=== PATIENT | female | born 1935 | race Two or more races ===

== ENCOUNTER 2023-08-20 13:29 | Emergency (ER) | payer OTHER ==
[~2023-08-20] VITALS: Ht 162.6 cm; Wt 98.9 kg
[~2023-08-20 13:29] MED LIST: ASA81 MG; COREG CR20 MG; COZAAR50 MG; GABAPENTIN100 MG; NORFLEX100 MG; TRAMADOL HCL-AP1 TAB; VASOTEC5 MG
[2023-08-20] MEDS ORDERED: ATORVASTATIN CA10 MG PO (13:50)
[2023-08-20] MEDS ORDERED: VITAMIN D3250 MCG PO (13:50)
[2023-08-20] MEDS ORDERED: LEVOTHYROXINE25 MC1 PO (13:50)
[2023-08-20] MEDS ORDERED: LOSARTAN-HCTZ1 EAC1 PO (13:50)
[2023-08-20 14:34] LABS: HEMATOCRIT 33.4 % (36.0-45.00); HEMOGLOBIN 11.2 g/dL (12.0-15.00); MEAN CELL VOLUME 83.7 fL (80.00-100.00); MEAN CORPUSCULAR HEMOGLOBIN 28.1 pg (27.00-32.0); MEAN CORPUSCULAR HGB CONC 33.6 g/dl (32.0-36.0); PLATELET COUNT 251 K/uL (150-450); RED BLOOD COUNT 3.99 M/uL (4.00-6.00); RED CELL DISTRIBUTION WIDTH 15.5 % (11.5-14.5)
[2023-08-20 15:04] LABS: CREATININE SERUM 0.97 mg/dL (0.55-1.02); GFR 54.2; POTASSIUM 3.43 mEq/L (3.5-5.1)
[2023-08-20 15:07] LABS: INR 1.01; PROTHROMBIN TIME 10.6 SECONDS (9.0-11.5)
[2023-08-20 15:20] LABS: URINE APPEARANCE Clear; URINE BILIRRUBIN Negative (NEGATIVE); URINE BLOOD Large; URINE COLOR Yellow; URINE GLUCOSE Negative (NEGATIVE); URINE LEUKOCYTE Large; URINE NITRATE Negative; URINE PROTEIN Negative (NEGATIVE)
[2023-08-20 15:23] LABS: URINE BACTERIA 134.7 uL (0.0-1933); URINE EPITHELIAL CELLS 4.6 uL (0.0-38.8); URINE RBC 1287.3 uL (0.0-20.8)
[2023-08-20] MEDS ORDERED: DUI500 PO (17:57)
== END 2023-08-20 18:08 | disposition home or self-care (01) ==
LOC: ER 13:30
PROVIDERS: General Practice
DX: N93.8 Other specified abnormal uterine and vaginal bleeding (principal); I10 Essential (primary) hypertension; E03.9 Hypothyroidism, unspecified; D25.9 Leiomyoma of uterus, unspecified